=== PATIENT | female | born 1940 | race Caucasian/White ===

== ENCOUNTER → 2025-02-06 11:08 | Outpatient (REF) | payer OTHER, SELFPAY ==
[2025-02-06 11:38] LABS: % Basophils 0.8 % (0-2); % Eosinophils 0.6 % (0-6); % Immature Granulocytes 0.2 % (0-0.5); % Monocytes 7.5 % (1.7-9.3); % Neutrophils 50.9 % (42.2-75.2); Absolute Lymphocytes 2.1 10^3/uL (1.2-3.4); Absolute Monocytes 0.4 10^3/uL (0.1-0.6); Absolute Neutrophils 2.7 10^3/uL (1.4-6.5); Hematocrit 37.5 % (37.0-47.0); Hemoglobin 12.7 g/dL (12.0-16.0); Mean Corp Hgb Conc. 33.9 g/dL (33.0-37.0); Mean Corpuscular Hgb 30.9 pg (27.0-31.0); Mean Corpuscular Volume 91.2 fL (81.0-99.0); Mean Platelet Volume 10.1 fL (7.4-10.4); Nucleated Red Blood Cells % 0 %; Platelet Count 290 10^3/uL (130-400); Red Blood Cell Count 4.11 10^6/uL (4.20-5.40); Red Cell Dist. Width 13.1 % (11.5-14.5); White Blood Cell Count 5.3 10^3/uL (4.8-10.8)
[2025-02-06 11:46] LABS: ALT (SGPT) 17 U/L (0-35); AST (SGOT) 25 U/L (14-36); Albumin 4.5 g/dl (3.5-5.0); Alkaline Phosphatase 95 U/L (38-126); Blood Urea Nitrogen 25 mg/dl (7-17); Calcium 9.6 mg/dl (8.4-10.2); Carbon Dioxide 27 mmol/L (22-30); Chloride 106 mmol/L (98-107); Glucose 125 mg/dl (70-99); HDL Cholesterol 74 mg/dl; LDL Cholesterol, Calculated 152 mg/dl; Potassium 4.3 mmol/L (3.5-5.1); Sodium 140 mmol/L (135-145); Total Bilirubin 1.1 mg/dl (0.2-1.3); Total Cholesterol 243 mg/dl (50-199); Total Protein 6.5 g/dl (6.3-8.2); Triglyceride 85 mg/dl (10-149); Very Low Density Lipoprotein 17 mg/dl (0-30); eGFR > 60.00
[2025-02-06 12:01] LABS: Glycohemoglobin (HgbA1c) 6.2 % (4.0-5.6)
== END ==
LOC: OLABWIL 11:08
PROVIDERS: ATTENDING PHYSICIAN Nurse Practitioner Adult Health
DX: Z00.00 Encounter for general adult medical examination without abnormal findings (principal); Z13.1 Encounter for screening for diabetes mellitus; Z13.220 Encounter for screening for lipoid disorders
CPT/HCPCS: 36415; 80053; 80061; 83036; 84443; 85025

== ENCOUNTER 2025-06-19 15:37 | Emergency (ER) | payer OTHER, SELFPAY ==
[2025-06-19] VITALS (7 sets, daily range): BP systolic 112–162; BP diastolic 79–118; BMI 30.3
[2025-06-19 16:13] LABS: Hematocrit 39.2 % (37.0-47.0); Hemoglobin 13.1 g/dL (12.0-16.0); Mean Corp Hgb Conc. 33.4 g/dL (33.0-37.0); Mean Corpuscular Volume 92.2 fL (81.0-99.0); Nucleated Red Blood Cells % 0 %; Platelet Count 269 10^3/uL (130-400); Red Cell Dist. Width 13.4 % (11.5-14.5)
[2025-06-19 16:39] LABS: ALT (SGPT) 19 U/L (0-35); AST (SGOT) 24 U/L (14-36); Albumin 4.4 g/dl (3.5-5.0); Alkaline Phosphatase 92 U/L (38-126); Blood Urea Nitrogen 27 mg/dl (7-17); Calcium 9.7 mg/dl (8.4-10.2); Carbon Dioxide 29 mmol/L (22-30); Chloride 107 mmol/L (98-107); Glucose 90 mg/dl (70-99); Potassium 4.1 mmol/L (3.5-5.1); Sodium 140 mmol/L (135-145); Total Protein 6.7 g/dl (6.3-8.2); eGFR > 60.00
--- NOTE | 2025-06-19 19:36 | ED.GENMED ---
History of Present Illness
General
Chief Complaint: Cardiac Symptoms
Time Seen by Provider: 06/19/25 18:48
History of Present Illness
History of Present Illness:
84-year-old female presents to the emergency department for evaluation of tachycardia and an abnormal EKG. She went to her doctor's office today for routine visit where she was found to be in rapid A-fib. She denies any complaints at this time.
She states she occasionally has palpitations but denies any currently. Denies any chest pain, dyspnea, decreased exercise tolerance, leg swelling, or fatigue. She has no prior history of A-fib.
Review of Systems
Review of Systems
Allergies reviewed?: Yes
All Other Systems: ROS reviewed and negative except as documented in HPI and ROS
Phy Exam
Physical Exam
Physical Exam:
GEN: Well appearing, NAD, WDWN
HEENT: Oral mucosa moist, no scleral icterus
Cardiac: Irregular and tachycardic, no murmur
Lung: No respiratory distress, no tachypnea, lungs clear to auscultation bilaterally
MSK: No gross deformity or injuries
Skin: Good color, no pallor or jaundice, no rashes
Neuro: AO x3, moves all extremities freely
Psych: Calm, cooperative
Course
Orders/Labs/Results
Orders:
Orders
06/19/25 15:41
Electrocardiogram (*1) Urgent
Reason for Study: Chest Pain
EKG- Treatment ONCE
06/19/25 16:01
Complete Blood Count/With Diff Urgent
Comprehensive Metabolic Panel Urgent
Magnesium Urgent
Comment: ADD ON
06/19/25 19:36
Add On- LAB Urgent
Tests Added?: magnesium
Metoprolol [Lopressor] 25 mg PO NOW STA
Metoprolol [Lopressor] 5 mg IV NOW STA
CR Chest - 2 Views Urgent
Comment:
Reason For Exam: rapid AF/palpitations
06/19/25 20:53
Metoprolol [Lopressor] 5 mg IV NOW STA
Abnormal Lab Results
06/19/25
16:01
BUN 27 H mg/dl
(7-17)
06/19/25 16:01
06/19/25 16:01
Vital Signs
Initial and Last Documented VS:
Initial Vital Signs
Temp Pulse Resp BP Pulse Ox
98.2 F 136 18 162/118 96
06/19/25 15:46 06/19/25 15:46 06/19/25 15:46 06/19/25 15:46 06/19/25 15:46
Last Documented Vital Signs
Temp Pulse Resp BP Pulse Ox
98.2 F 98 17 112/79 95
06/19/25 15:46 06/19/25 21:15 06/19/25 21:15 06/19/25 21:05 06/19/25 21:15
MDM/Problems Addressed
MDM/Problems Addressed:
On arrival patient is found to be in rapid atrial fibrillation. Given that she is asymptomatic the onset time is unknown making her not suitable for ED cardioversion. She exhibits no signs of congestive heart failure and appears quite well. She
was treated with IV and oral rate control with good results. When discussing anticoagulants the patient was quite apprehensive to initiating these. After lengthy discussion she eventually relented to half dose Eliquis although she verbalized
understanding that this may not be deemed adequate by cardiology. She will be discharged on Eliquis and metoprolol and given close follow-up instructions with cardiology. She is not a fall risk and ambulates adequately without the use of assistive
devices
Comment
Comment:
EKG independently interpreted by me shows a rapid atrial fibrillation with no concerning ST changes
*Pulse Oximetry
SaO2: 96
Oxygen Mode of Delivery: Room air
Patient hypoxic: no
*Critical Care Note
Total Time (30-74mins, 75-104mins- exclusive of procedures): Not Applicable
ED Attending Note
-
Portions of this chart may have been created with voice recognition software.� Occasional wrong word or��sound alike� substitutions may have occurred due to the inherent limitations of voice recognition software.
Discharge Plan
Departure
Patient Disposition: Home (Routine Discharge)
Date of Disposition: 06/19/25
Time of Disposition: 21:26
Patient with high blood pressure during this ER visit?: No
Discharge Problem:
Atrial fibrillation, new onset
Instructions: Atrial fibrillation and atrial flutter - ED (DC), Chest Pain CBC Follow Up
Prescriptions:
New
metoprolol succinate 25 mg capsule,sprinkle,ER 24hr
25 mg PO DAILY Qty: 30 0RF
Eliquis 2.5 mg tablet
2.5 mg PO BID Qty: 60 0RF
Referrals:
Hung Torrez MD [Active, Cardiology]
Latanya Aguiar CRNP [Family Provider, Internal Medicine]
Activity Restrictions/Additional Instructions:
We discussed that taking half dose Eliquis may not be appropriate however this is better than no Eliquis at all. Please follow-up with cardiology as soon as possible
Interventions
Interventions:
*Risk Screen - Suicide Last Done: 06/19/25 18:53
*General Assessment Last Done: 06/19/25 18:53
*Neglect/Abuse Screening Last Done: 06/19/25 18:53
*ED- Fall Risk Assessment Last Done: 06/19/25 18:53
*ED COVID-19 Vaccine History Last Done: 06/19/25 18:53
*Nursing Disposition Last Done: 06/19/25 21:46
ED- Pulmonary Assessment Last Done: 06/19/25 18:53
ED- Cardiac Assessment Last Done: 06/19/25 18:53
Discharge Date and Time
Discharge Date/Time: 06/19/25 21:48
Print Language: PUERTO RICAN
[2025-06-19] MEDS: LOPRESSOR 25 MG PO (19:43)
[2025-06-19] MEDS: LOPRESSOR 5 MG IV ×2 (19:46→21:05)
[2025-06-19 20:47] LABS: Magnesium 2.2 mg/dl (1.6-2.3)
== END 2025-06-19 21:48 | disposition home or self-care (01) ==
LOC: EMR 15:37
PROVIDERS: Emergency Medicine; EMERGENCY PHYSICIAN Emergency Medicine; FAMILY PHYSICIAN Nurse Practitioner Adult Health
DX: I48.91 Unspecified atrial fibrillation (principal)
CPT/HCPCS: 99284; 96374; 96376; 71046; 80053; 83735; 85025; 93005

== ENCOUNTER → 2025-07-03 10:08 | Outpatient (REF) | payer OTHER, SELFPAY | LOC: OLABWIL 10:08 | PROVIDERS: ATTENDING PHYSICIAN Student in an Organized Health Care Education/Training Program | DX: I48.91 Unspecified atrial fibrillation (principal) | CPT/HCPCS: 36415; 84443 ==

== ENCOUNTER → 2025-07-16 09:04 | Outpatient (REF) | payer OTHER, SELFPAY | LOC: RCS 09:04 | PROVIDERS: ATTENDING PHYSICIAN Student in an Organized Health Care Education/Training Program; FAMILY PHYSICIAN Nurse Practitioner Adult Health | DX: I48.91 Unspecified atrial fibrillation (principal) | CPT/HCPCS: 93306 ==

== ENCOUNTER → 2025-08-26 12:03 | Outpatient (REF) | payer OTHER, SELFPAY | LOC: RAD 12:03 | PROVIDERS: ATTENDING PHYSICIAN Nurse Practitioner Adult Health | DX: H57.9 Unspecified disorder of eye and adnexa (principal); R51.9 Headache, unspecified | CPT/HCPCS: 70481; 70486; Q9967 ==